=== PATIENT | female | born 1950 | race Caucasian/White ===

== ENCOUNTER 2017-04-14 06:48 | Day surgery (SDC) | payer OTHER ==
[~2017-04-14] VITALS: Ht 167.6 cm; Wt 74.8 kg
[2017-04-14] MEDS ORDERED: CEFAZOLIN SOD 1 GM in D5W 50 ML IV ONE (07:00)
[2017-04-14] MEDS ORDERED: MIDAZOLAM HCL 5 MG/5 ML VIAL IVP ONE (10:45)
[2017-04-14] MEDS ORDERED: SEVOFLURANE 15 MIN GAS INH ONE (10:45)
[2017-04-14] MEDS ORDERED: PROPOFOL 200MG/ 20ML VIAL (DIPRIVAN) IV ONE (10:45)
[2017-04-14] MEDS ORDERED: ROCURONIUM BROMIDE 10 MG/ML (ZEMURON) IV ONE (10:45)
[2017-04-14] MEDS ORDERED: NEOSTIGMINE METHYLSULFATE 1 MG/ML, 10 ML VIAL IVP ONE (10:45)
[2017-04-14] MEDS ORDERED: fentaNYL CITRATE 250 MCG/5 ML AMP IV ONE (10:45)
[2017-04-14] MEDS ORDERED: BUPIVACAINE /EPINEPHRINE/PF 0.25% 30 ML VIAL INJ ONE (10:45)
[2017-04-14] MEDS ORDERED: ONDANSETRON HCL 4 MG/2 ML VIAL IVP ONE (10:45)
[2017-04-14] MEDS ORDERED: GLYCOPYRROLATE 0.2 MG/ML VIAL IJ ONE (10:45)
[2017-04-14] MEDS ORDERED: LR 1,000 ML IV SCH (11:39)
[2017-04-14] MEDS ORDERED: HYDROmorphone 1 MG INJ. 1 MG/ML AMPUL IVP PRN (11:45)
[2017-04-14] MEDS ORDERED: HYDROcodone/ACETAMIN 5-325 MG TAB (NORCO/ VICODIN) PO PRN ×2 (11:45)
[2017-04-14] MEDS ORDERED: METOCLOPRAMIDE HCL 10 MG/2 ML VIAL IVP PRN (11:45)
[2017-04-14] MEDS ORDERED: MORPHINE 2 MG/ML INJ. SYRINGE IVP PRN ×3 (11:45)
[2017-04-14] MEDS ORDERED: D5/0.45 NS 1,000 ML IV SCH (11:45)
[2017-04-14 13:09] VITALS: BP_SYST 107
== END 2017-04-14 13:20 | disposition home or self-care (01) ==
LOC: SDS 06:48 → SMU 06:48 → EDSTATUS 09:05 → SDS 13:20
PROVIDERS: ATTEND Colon & Rectal Surgery
DX: D05.11 Intraductal carcinoma in situ of right breast (principal); F41.9 Anxiety disorder, unspecified; J44.9 Chronic obstructive pulmonary disease, unspecified; K21.9 Gastro-esophageal reflux disease without esophagitis; E78.5 Hyperlipidemia, unspecified; R06.02 Shortness of breath; E04.1 Nontoxic single thyroid nodule; Z98.890 Other specified postprocedural states; Z79.899 Other long term (current) drug therapy; G62.9 Polyneuropathy, unspecified; M19.90 Unspecified osteoarthritis, unspecified site
CPT/HCPCS: 19281; 19301; 76098; 88307; J0690; J2250; J2405; J2704; J2710; J3010; J3490 ×2; J7060; J7120; 88305